=== PATIENT | male | born 1935 | race Caucasian/White ===

== ENCOUNTER 2017-08-10 08:40 | Day surgery (SDC) | payer OTHER ==
[2017-08-10] MEDS ORDERED: LIDOCAINE 4% SOLUTION 50 ML BTL (09:01)
[2017-08-10] MEDS ORDERED: FENTAnyl 50 MCG/ML VIAL (09:56)
[2017-08-10] MEDS ORDERED: MIDAZOLAM 1 MG/ML 2 ML INJ ×2 (09:56)
== END 2017-08-10 10:39 | disposition home or self-care (01) ==
LOC: GIL 08:40
DX: R19.5 Other fecal abnormalities (principal); K21.0 Gastro-esophageal reflux disease with esophagitis; K57.90 Diverticulosis of intestine, part unspecified, without perforation or abscess without bleeding; K64.4 Residual hemorrhoidal skin tags; K20.8 Other esophagitis; E11.9 Type 2 diabetes mellitus without complications
CPT/HCPCS: 43239; 82962; 88305; 88312; 88313